=== PATIENT | female | born 1990 | race Caucasian/White ===

== ENCOUNTER 2016-11-10 19:44 | Emergency (ER) | payer SELFPAY ==
[~2016-11-10 19:44] MED LIST: Lidocaine 1% 20 ML MDV ONE
[2016-11-10] MEDS ORDERED: Bupivacaine HCl 0.5%/Epinephrine 1:200,000/PF 30 ml Vial ONE (20:13)
[2016-11-10] MEDS ORDERED: Bupivacaine PF 0.5% 30 ML VIAL ONE (20:16)
[2016-11-10] MEDS ORDERED: HYDROcodone/Acetaminophen 5/325 mg Tablet ONE (20:33)
[2016-11-10] MEDS ORDERED: Cephalexin 500 MG CAP ONE (20:34)
[2016-11-10] MEDS ORDERED: Ibuprofen 800 MG TAB ONE (20:34)
== END 2016-11-10 20:40 | disposition home or self-care (01) ==
LOC: MADERS 19:44
DX: L03.032 Cellulitis of left toe (principal)
CPT/HCPCS: J0670; J2001; S0020

== ENCOUNTER 2017-01-20 12:13 | Emergency (ER) | payer SELFPAY ==
[2017-01-20] MEDS ORDERED: AMOXicillin 250 MG CAP ONE (12:52)
[2017-01-20] MEDS ORDERED: Benzonatate 100 MG CAP ONE (12:52)
== END 2017-01-20 13:30 | disposition home or self-care (01) ==
LOC: MADERS 12:13
DX: J03.90 Acute tonsillitis, unspecified (principal)
CPT/HCPCS: 99283

== ENCOUNTER 2017-08-13 06:37 | Emergency (ER) | payer SELFPAY ==
[2017-08-13 07:03] LABS: Bilirubin Negative (Negative); Blood, Urine Negative (Negative); Glucose, Urine (Dipstick) Negative (Negative); Leukocyte Negative (Negative); Nitrite Negative (Negative); Protein, Urine (Dipstick) Negative (Neg-Trace); Specific Gravity, Urine 1.025 (1.005-1.030); Urobilinogen 0.2 mg/dL (0.2-1.0)
[2017-08-13 07:04] LABS: Clarity Hazy (Clear)
[2017-08-13 07:05] LABS: Pregnancy Test - Urine (BHCG) Negative (Negative); Pregu Control Background? CLEAR/WHITE (CLR/WHITE); Pregu Control Bar Appear? YES (CONTROL BAR); Specific Gravity 1.025 (1.002-1.036)
[2017-08-13 07:30] LABS: #Basophils 0.1 thou/uL (0.0-0.2); #Eosinphils 0.2 thou/uL (0.0-0.7); #Lymphocytes 1.7 thou/uL (1.20-3.40); #Monocytes 0.5 thou/uL (0.11-0.59); #Neutrophils 8.3 thou/uL (1.40-6.50); %Basophils 0.7 % (0.0-1.0); %Eosinophils 1.7 % (0.0-10.0); %Lymphocytes 15.9 % (21.0-51.0); %Monocytes 4.6 % (0.0-10.0); Hemoglobin 12.4 g/dL (12.0-16.0); Mean Corpuscular HGB CONC 34.4 g/dL (32.0-36.0); Mean Corpuscular Hemoglobin 31.6 pg (27.0-31.0); Platelet Count 242 thou/uL (130-400); Red Blood Cell (RBC) Count 3.92 mill/uL (4.20-5.40); White Blood Cell (WBC) Count 10.8 thou/uL (4.8-10.8)
[2017-08-13] MEDS ORDERED: Ondansetron ODT 4 MG TAB ONE (07:32)
[2017-08-13 07:49] LABS: ALT (SGPT) 23 U/L (8-55); AST (SGOT) 15 U/L (5-34); Albumin 4.1 g/dL (3.5-5.0); Alkaline Phosphatase 65 U/L (40-150); Anion Gap 16 mmol/L (10-20); BUN (Urea Nitrogen) 16 mg/dL (7.0-18.7); Bilirubin, Total 0.4 mg/dL (0.2-1.2); Calc. Creatinine Clearance 0 mL/min (70-130); Calcium 8.9 mg/dL (7.8-10.44); Carbon Dioxide 26 mmol/L (22-29); Chloride 102 mmol/L (98-107); Estimated GFR-MDRD Greater than 90; Globulin 3.2 g/dL (2.4-3.5); Glucose 127 mg/dL (70-105); Lipase 30 U/L (8-78); Protein, Total 7.3 g/dL (6.0-8.3); Sodium 140 mmol/L (136-145)
[2017-08-13] MEDS ORDERED: Ondansetron HCl/PF 4 MG/2 ML Vial ONE (08:13)
[2017-08-13] MEDS ORDERED: Pantoprazole 40 MG VIAL ONE (08:13)
--- NOTE | 2017-08-13 09:11 | RAD ---
ACUTE ABDOMINAL SERIES FIVE VIEWS: INDICATIONS: Pain. Nausea and vomiting. FINDINGS: The lungs are clear. No free air is seen beneath the hemidiaphragms. The bowel gas pattern is not o bstructed. IMPRESSION: No acute abnormality identified. POS: [facility]
[2017-08-13] MEDS ORDERED: Sodium Chloride 0.9% 1,000 ML BAG ONE (09:14)
[2017-08-13] MEDS ORDERED: Sodium Chloride 0.9% 100 ML BAG ONE (09:14)
== END 2017-08-13 10:45 | disposition home or self-care (01) ==
LOC: MADERS 06:37
DX: K29.00 Acute gastritis without bleeding (principal)
CPT/HCPCS: 36415; 74022; 80053; 81003; 81025; 83690; 85025; 96361; 96365; 96372; 96375; C9113; J2405; J7050; Q0162

== ENCOUNTER 2018-08-01 12:00 | Emergency (ER) | payer SELFPAY | END 2018-08-01 14:13 | disposition home or self-care (01) | LOC: MADERS 12:00 | DX: J06.9 Acute upper respiratory infection, unspecified (principal) | CPT/HCPCS: 99282 ==

== ENCOUNTER 2018-09-05 14:13 | Emergency (ER) | payer MEDICAID, SELFPAY | END 2018-09-05 15:40 | disposition home or self-care (01) | LOC: MADERS 14:13 | DX: J06.9 Acute upper respiratory infection, unspecified (principal) | CPT/HCPCS: 99283 ==

== ENCOUNTER 2018-12-14 09:20 | Emergency (ER) | payer SELFPAY ==
[2018-12-14] MEDS ORDERED: methylPREDNISolone Sod Succ/PF 125 MG/2 ML VIAL ONE (10:34)
[2018-12-14] MEDS ORDERED: Sterile Water 10 ML ONE (10:34)
[2018-12-14] MEDS ORDERED: Albuterol Sulfate 2.5 mg/0.5 ml Neb ONE (11:31)
--- NOTE | 2018-12-14 11:37 | RAD ---
Chest AP view INDICATION: Dyspnea COMPARISON: May 03, 2015 FINDINGS: Lungs:The lungs are clear Cardiac silhouette pulmonary vasculature:The cardiomediastinal silhouette appears within normal limit s. Pleural spaces:No pleural effusion or pneumothorax is demonstrated. Upper abdomen:No abnormality seen. Osseous structures: No acute osseous abnormality. Additional findings:None. IMPRESSION: No acute cardiopulmonary abnormality.
== END 2018-12-14 12:43 | disposition home or self-care (01) ==
LOC: MADERS 09:20
DX: J45.901 Unspecified asthma with (acute) exacerbation (principal)
CPT/HCPCS: 71045; 96372; A4216; J2930; J7611; J7620

== ENCOUNTER 2019-04-04 18:26 | Emergency (ER) | payer SELFPAY ==
[2019-04-04] MEDS ORDERED: Ketorolac Tromethamine 30 MG/ML VIAL ONE (19:43)
[2019-04-04] MEDS ORDERED: Sodium Chloride 0.9% 1,000 ML ONE (19:43)
[2019-04-04] MEDS ORDERED: Pantoprazole 40 MG VIAL ONE (19:43)
[2019-04-04] MEDS ORDERED: Ondansetron PF 4 MG/2 ML Vial ONE (19:43)
[2019-04-04 20:19] LABS: #Eosinphils 0.2 thou/uL (0.0-0.7); #Lymphocytes 1.4 thou/uL (1.20-3.40); #Monocytes 0.6 thou/uL (0.11-0.59); #Neutrophils 6.2 thou/uL (1.40-6.50); %Basophils 0.5 % (0.0-1.0); %Eosinophils 2.1 % (0.0-10.0); %Lymphocytes 16.5 % (21.0-51.0); %Monocytes 6.6 % (0.0-10.0); %Neutrophils 74.3 % (42.0-75.0); Hemoglobin 12.3 g/dL (12.0-16.0); Mean Corpuscular HGB CONC 33.5 g/dL (32.0-36.0); Mean Corpuscular Volume 89.4 fL (78.0-98.0); Platelet Count 235 thou/uL (130-400); RBC Distribution Width 12.1 % (11.5-14.5); Red Blood Cell (RBC) Count 4.11 mill/uL (4.20-5.40); White Blood Cell (WBC) Count 8.3 thou/uL (4.8-10.8)
[2019-04-04 20:31] LABS: BHCG - Serum Negative (NEGATIVE); Pregs Control Background? CLEAR/WHITE (CLR/WHITE); Pregs Control Bar Appear? YES (CONTROL BAR)
[2019-04-04 20:35] LABS: ALT (SGPT) 34 U/L (8-55); AST (SGOT) 20 U/L (5-34); Albumin 4.1 g/dL (3.5-5.0); Alkaline Phosphatase 75 U/L (40-150); Anion Gap 15 mmol/L (10-20); BUN (Urea Nitrogen) 13 mg/dL (7.0-18.7); Bilirubin Negative (Negative); Bilirubin, Total 0.7 mg/dL (0.2-1.2); Blood, Urine Negative (Negative); Calc. Creatinine Clearance 0 mL/min (70-130); Calcium 9.3 mg/dL (7.8-10.44); Carbon Dioxide 28 mmol/L (22-29); Chloride 100 mmol/L (98-107); Clarity Clear (Clear); Estimated GFR-MDRD 71; Globulin 3.4 g/dL (2.4-3.5); Glucose 93 mg/dL (70-105); Glucose, Urine (Dipstick) Negative (Negative); Leukocyte Negative (Negative); Lipase 34 U/L (8-78); Nitrite Negative (Negative); Potassium 3.9 mmol/L (3.5-5.1); Protein, Total 7.5 g/dL (6.0-8.3); Protein, Urine (Dipstick) Negative (Neg-Trace); Sodium 139 mmol/L (136-145); Urobilinogen 0.2 mg/dL (Less than 2)
[2019-04-04] MEDS ORDERED: metroNIDAZOLE 500 MG/100 ML BAG ONE (21:40)
--- NOTE | 2019-04-04 21:40 | CT ---
CT ABDOMEN WITH CONTRAST CT PELVIS WITH CONTRAST: DATE: 04/04/2019 HISTORY: 28-year-old female with epigastric abdominal pain TECHNIQUE: IV injection of iodinated contrast media: Administered Oral contrast media:Not administered FINDINGS: Liver: No focal solid mass. Spleen: No splenomegaly.. Pancreas: No mass or surrounding fat stranding.. Adrenals: No mass.. Kidneys: No hydronephrosis or enhancement abnormalities.. Ureters: No dilation. Bladder: No pathology identified. Abdominal aorta: No aneurysm. Small bowel: No dilation. Colon: Diffuse mural edema and thickening of entire colon, with minimal adjacent fat stranding. Appendix: No dilation or adjacent fat stranding.. Free air: None. Free fluid: None. IMPRESSION: Pancolitis
[2019-04-04] MEDS ORDERED: Levofloxacin 500 mg/D5W 100 ml Premix Bag ONE (22:22)
== END 2019-04-04 23:05 | disposition home or self-care (01) ==
LOC: MADERS 18:26
DX: K52.9 Noninfective gastroenteritis and colitis, unspecified (principal); J45.909 Unspecified asthma, uncomplicated
CPT/HCPCS: 74177; 80053; 81003; 83690; 84703; 85025; C9113; J1885; J1956; J2405; J7050

== ENCOUNTER 2019-08-03 03:46 | Emergency (ER) | payer SELFPAY ==
[2019-08-03] MEDS ORDERED: Pantoprazole 40 MG VIAL ONE (04:30)
[2019-08-03] MEDS ORDERED: Ketorolac Tromethamine 30 MG/ML VIAL ONE (04:30)
[2019-08-03] MEDS ORDERED: Sodium Chloride 0.9% 1,000 ML ONE (04:30)
[2019-08-03] MEDS ORDERED: Ondansetron PF 4 MG/2 ML Vial ONE (04:30)
[2019-08-03 05:39] LABS: BHCG - Serum Negative (NEGATIVE); Pregs Control Background? CLEAR/WHITE (CLR/WHITE); Pregs Control Bar Appear? YES (CONTROL BAR)
[2019-08-03 05:49] LABS: ALT (SGPT) 30 U/L (8-55); AST (SGOT) 11 U/L (5-34); Albumin 3.8 g/dL (3.5-5.0); Alkaline Phosphatase 64 U/L (40-110); Anion Gap 13 mmol/L (10-20); BUN (Urea Nitrogen) 15 mg/dL (7.0-18.7); Bilirubin, Total 0.3 mg/dL (0.2-1.2); Calc. Creatinine Clearance 0 mL/min (70-130); Calcium 8.3 mg/dL (7.8-10.44); Carbon Dioxide 25 mmol/L (22-29); Chloride 108 mmol/L (98-107); Estimated GFR-MDRD Greater than 90; Globulin 2.9 g/dL (2.4-3.5); Glucose 127 mg/dL (70-105); Lipase 27 U/L (8-78); Potassium 3.9 mmol/L (3.5-5.1); Protein, Total 6.7 g/dL (6.0-8.3); Sodium 142 mmol/L (136-145)
[2019-08-03 05:50] LABS: CRP (Inflammatory) 1.79 mg/dL (= or < 0.5)
[2019-08-03 05:59] LABS: Bilirubin Negative (Negative); Blood, Urine Large (Negative); Glucose, Urine (Dipstick) Negative (Negative); Leukocyte Negative (Negative); Nitrite Negative (Negative); Protein, Urine (Dipstick) Trace mg/dL (Neg-Trace); Urobilinogen 0.2 mg/dL (Less than 2)
[2019-08-03 06:01] LABS: Hemoglobin 11.6 g/dL (12.0-16.0); Mean Corpuscular Hemoglobin 29.9 pg (27.0-31.0); Mean Corpuscular Volume 92.6 fL (78.0-98.0)
[2019-08-03 06:02] LABS: %Basophils 0.6 % (0.0-1.0); %Eosinophils 1.4 % (0.0-10.0); %Lymphocytes 13.2 % (21.0-51.0); %Neutrophils 79.8 % (42.0-75.0); Mean Corpuscular HGB CONC 32.2 g/dL (32.0-36.0); Mean Platelet Volume 7.2 fL (7.4-10.4); Platelet Count 230 thou/uL (130-400); RBC Distribution Width 12.5 % (11.5-14.5)
[2019-08-03 06:03] LABS: #Basophils 0.1 thou/uL (0.0-0.2); #Eosinphils 0.1 thou/uL (0.0-0.7); #Lymphocytes 1.2 thou/uL (1.20-3.40); #Monocytes 0.5 thou/uL (0.11-0.59); #Neutrophils 7.1 thou/uL (1.40-6.50); Manual Diff?? NO
[2019-08-03 06:06] LABS: Pregnancy Test - Urine (BHCG) Negative (Negative)
[2019-08-03 06:07] LABS: Clarity Cloudy (Clear)
[2019-08-03 06:08] LABS: Pregu Control Background? CLEAR/WHITE (CLR/WHITE); Pregu Control Bar Appear? YES (CONTROL BAR); Specific Gravity 1.026 (1.002-1.036)
[2019-08-03 06:13] LABS: Bacteria/HPF 2+ HPF (None Seen)
--- NOTE | 2019-08-03 08:20 | CT ---
CT Abdomen Pelvis W Con History: Abdominal pain Comparison: CT abdomen and pelvis April 04, 2019 Findings: Mild atelectasis right lung base. No pericardial effusion. Gallbladder is distended without significant pericholecystic edema. Mild periportal edema. Possible cholelithiasis. No hydronephrosis. Previously noted pancolitis has improved. No free intraperitoneal gas or fluid. No retroperitoneal pe riaortic adenopathy. Bilateral L5 pars interarticularis defects with advanced posterior degenerative disc space height los s and posterior disc osteophyte complex at L5/S1. No significant listhesis. Impression: 1. Mild periportal edema can be seen with volume overload/overhydration versus acute hepatitis. Recom mend correlation with LFTs. 2. Resolution of pancolitis. 3. Possible cholelithiasis of the gallbladder neck. Ultrasound may be beneficial if clinically warran saravanan.
[2019-08-03] MEDS ORDERED: Iopamidol 370 76% 100 ML VIAL ONE (12:17)
== END 2019-08-03 08:50 | disposition home or self-care (01) ==
LOC: MADERS 03:46
DX: R10.13 Epigastric pain (principal); J45.909 Unspecified asthma, uncomplicated
CPT/HCPCS: 74177; 80053; 81003; 81015; 81025; 82150; 82550; 83690; 84703; 85025; 86140; 87086; 94760; 96361; 96374; 96375; C9113; J1885; J2405; J7050; Q9967

== ENCOUNTER 2020-12-03 15:10 | Emergency (ER) | payer SELFPAY ==
[2020-12-03 15:51] LABS: Bilirubin Negative (Negative); Blood, Urine Negative (Negative); Glucose, Urine (Dipstick) Negative (Negative); Ketone, Urine Negative (Negative); Leukocyte Negative (Negative); Nitrite Negative (Negative); Protein, Urine (Dipstick) Negative (Neg-Trace); Urobilinogen 0.2 mg/dL (Less than 2); pH, Urine 5.5 (5.0-9.0)
[2020-12-03 15:52] LABS: Specific Gravity, Urine 1.027 (1.002-1.036)
[2020-12-03 15:54] LABS: Pregnancy Test - Urine (BHCG) Negative (Negative); Pregu Control Background? CLEAR/WHITE (CLR/WHITE); Pregu Control Bar Appear? YES (CONTROL BAR); Specific Gravity 1.027 (1.002-1.036)
[2020-12-03] MEDS ORDERED: Ketorolac Tromethamine 30 MG/ML VIAL ONE (16:06)
[2020-12-03 16:26] LABS: #Basophils 0.1 thou/uL (0.0-0.2); #Eosinphils 0.2 thou/uL (0.0-0.7); #Lymphocytes 1.7 thou/uL (1.20-3.40); #Monocytes 0.5 thou/uL (0.11-0.59); #Neutrophils 6.7 thou/uL (1.40-6.50); %Basophils 0.6 % (0.0-1.0); %Eosinophils 1.8 % (0.0-10.0); %Lymphocytes 19.2 % (21.0-51.0); %Monocytes 5.3 % (0.0-10.0); %Neutrophils 73.2 % (42.0-75.0); Hemoglobin 12.3 g/dL (12.0-16.0); Mean Corpuscular HGB CONC 31.8 g/dL (32.0-36.0); Mean Corpuscular Hemoglobin 29.8 pg (27.0-31.0); Mean Corpuscular Volume 93.7 fL (78.0-98.0); Mean Platelet Volume 7.4 fL (7.4-10.4); Platelet Count 299 thou/uL (130-400); RBC Distribution Width 13.6 % (11.5-14.5); Red Blood Cell (RBC) Count 4.12 mill/uL (4.20-5.40); White Blood Cell (WBC) Count 9.1 thou/uL (4.8-10.8)
[2020-12-03 16:40] LABS: ALT (SGPT) 29 U/L (8-55); AST (SGOT) 21 U/L (5-34); Albumin 4.2 g/dL (3.5-5.0); Alkaline Phosphatase 66 U/L (40-110); Anion Gap 16 mmol/L (10-20); BUN (Urea Nitrogen) 12 mg/dL (7.0-18.7); Bilirubin, Total 0.5 mg/dL (0.2-1.2); Calc. Creatinine Clearance 0 mL/min (70-130); Calcium 8.9 mg/dL (7.8-10.44); Carbon Dioxide 29 mmol/L (22-29); Chloride 102 mmol/L (98-107); Globulin 3.2 g/dL (2.4-3.5); Glucose 104 mg/dL (70-105); Potassium 3.8 mmol/L (3.5-5.1); Protein, Total 7.4 g/dL (6.0-8.3); Sodium 143 mmol/L (136-145)
== END 2020-12-03 16:59 | disposition home or self-care (01) ==
LOC: MADERS 15:10
DX: R10.32 Left lower quadrant pain (principal); E66.9 Obesity, unspecified; J45.909 Unspecified asthma, uncomplicated
CPT/HCPCS: 36415; 74176; 80053; 81003; 81025; 85025; 96372; J1885

== ENCOUNTER 2021-05-17 17:24 | Emergency (ER) | payer SELFPAY | END 2021-05-17 18:51 | disposition home or self-care (01) | LOC: MADERS 17:24 | DX: M77.32 Calcaneal spur, left foot (principal); J45.909 Unspecified asthma, uncomplicated; E66.9 Obesity, unspecified ==

== ENCOUNTER 2021-07-04 17:47 | Emergency (ER) | payer MEDICAID, SELFPAY ==
[2021-07-05 21:58] LABS: SARS-CoV-2 PCR by NAA Not Detected (NotDetected)
== END 2021-07-04 18:14 | disposition home or self-care (01) ==
LOC: MADERS 17:47
DX: J06.9 Acute upper respiratory infection, unspecified (principal); Z20.822 Contact with and (suspected) exposure to COVID-19
CPT/HCPCS: 87804; 99283; U0003; U0005

== ENCOUNTER 2021-08-08 00:15 | Emergency (ER) | payer SELFPAY ==
[2021-08-08 15:33] LABS: SARS-CoV-2 PCR by NAA DETECTED (NotDetected)
== END 2021-08-08 00:40 | disposition home or self-care (01) ==
LOC: MADERS 00:15
DX: U07.1 COVID-19 (principal); M77.30 Calcaneal spur, unspecified foot; J45.909 Unspecified asthma, uncomplicated
CPT/HCPCS: 99283; U0003; U0005

== ENCOUNTER 2022-07-17 20:57 | Emergency (ER) | payer OTHER, SELFPAY | END 2022-07-17 21:22 | disposition home or self-care (01) | LOC: MADERS 20:57 | DX: J11.1 Influenza due to unidentified influenza virus with other respiratory manifestations (principal); Z20.822 Contact with and (suspected) exposure to COVID-19; E66.9 Obesity, unspecified | CPT/HCPCS: 87804; 99283; U0003; U0005 ==

== ENCOUNTER 2023-03-07 10:20 | Emergency (ER) | payer OTHER ==
[2023-03-07] MEDS ORDERED: Ibuprofen 600 MG TAB ONE (11:02)
[2023-03-07 11:15] LABS: #Basophils 0.1 thou/uL (0.0-0.2); #Eosinphils 0.1 thou/uL (0.0-0.7); #Lymphocytes 1.6 thou/uL (1.20-3.40); #Monocytes 0.4 thou/uL (0.11-0.59); #Neutrophils 7.4 thou/uL (1.40-6.50); %Basophils 0.7 % (0.0-1.0); %Eosinophils 1.3 % (0.0-10.0); %Lymphocytes 16.8 % (21.0-51.0); %Monocytes 3.9 % (0.0-10.0); %Neutrophils 77.3 % (42.0-75.0); Hemoglobin 13.6 g/dL (12.0-16.0); Mean Corpuscular HGB CONC 33.3 g/dL (32.0-36.0); Mean Corpuscular Hemoglobin 30.9 pg (27.0-31.0); Mean Corpuscular Volume 92.8 fl (78.0-98.0); Mean Platelet Volume 8.4 fL (7.4-10.4); Platelet Count 297 10x3/uL (130-400); RBC Distribution Width 13.1 % (11.5-14.5); Red Blood Cell (RBC) Count 4.39 mill/uL (4.20-5.40); White Blood Cell (WBC) Count 9.5 10x3/uL (4.8-10.8)
[2023-03-07 11:27] LABS: Anion Gap 17 mmol/L (10-20); BUN (Urea Nitrogen) 12 mg/dL (7.0-18.7); Calc. Creatinine Clearance 0 mL/min (70-130); Calcium 9.3 mg/dL (7.8-10.44); Carbon Dioxide 25 mmol/L (22-29); Chloride 101 mmol/L (98-107); Estimated GFR 117; Glucose 114 mg/dL (70-105); Potassium 4.1 mmol/L (3.5-5.1); Sodium 139 mmol/L (136-145)
== END 2023-03-07 12:03 | disposition home or self-care (01) ==
LOC: MADERS 10:20
DX: M79.602 Pain in left arm (principal); F41.9 Anxiety disorder, unspecified; E66.9 Obesity, unspecified
CPT/HCPCS: 36415; 71046; 80048; 84443; 84484; 85025; 93005